=== PATIENT | female | born 1990 | race Two or more races ===

== ENCOUNTER 2016-07-04 00:25 | Emergency (ER) | payer SELFPAY ==
[2016-07-04] MEDS ORDERED: IOPAMIDOL 300 (61%) 150 ML VIAL IV ONE (00:26)
[2016-07-04] MEDS ORDERED: LACTATED RINGERS 1,000 ML ONE (02:20)
[2016-07-04] MEDS ORDERED: ONDANSETRON 4 MG/2ML 2 ML VIAL ONE ×2 (02:20→04:33)
[2016-07-04] MEDS ORDERED: HYDROMORPHONE HCL 0.5 MG/0.5 ML SYRINGE ONE (02:21)
[2016-07-04 02:30] LABS: ABSOLUTE NEUTROPHIL COUNT 10.4 K/mm3 (1.8-7.7); BASO % 0.3 % (0.2-1.0); EOS # 0.1 (0.0-0.5); EOS % 0.4 % (0.9-2.9); HEMATOCRIT 39.8 % (37.0-47.0); HEMOGLOBIN 12.7 gm/l (12.0-16.0); IMM NEUT # 0.1 K/mm3 (0-0.2); IMM NEUT% 0.5 % (0-1); LYMPH # 1.8 (1.0-4.8); LYMPH % 13.5 % (15-45); MEAN CORPUSCULAR HEMOGLOBIN 27.1 pg (27.0-31.0); MEAN CORPUSCULAR HGB CONC 31.9 g/dl (33.0-37.0); MEAN PLATELET VOLUME 10.7 fl (7.4-10.4); MONO # 1.2 (0.0-0.8); NEUT % 76.3 % (43-75); PLATELET COUNT 357 K/mm3 (130-400); RED CELL DISTRIBUTION WIDTH 13.5 % (11.5-14.5); SPECIFIC GRAVITY 1.005 (1.001-1.030); URINE BILIRUBIN NEGATIVE (NEGATIVE); URINE BLOOD TRACE (NEGATIVE); URINE GLUCOSE (UA) NEGATIVE (NEGATIVE); URINE LEUKOCYTE ESTERASE TRACE (NEGATIVE); URINE NITRITE NEGATIVE (NEGATIVE); URINE PROTEIN 2+ (NEGATIVE); URINE UROBILINOGEN NORMAL (0-1 mg/dl)
[2016-07-04 02:31] LABS: HCG,QUALITATIVE URINE NEGATIVE
[2016-07-04 02:32] LABS: URINE APPEARANCE SL CLOUDY; URINE COLOR YELLOW
[2016-07-04 02:36] LABS: URINE BACTERIA 1+
[2016-07-04 02:51] LABS: ALB/GLOB RATIO 0.9 (>1.0); CALCIUM 9.8 mg/dL (8.6-10.3)
[2016-07-04] MEDS ORDERED: KETOROLAC TROMETHAMINE 15 MG/ML VIAL ONE (04:33)
--- NOTE | 2016-07-04 08:55 | CT ---
Exam Type: ABD/PELVIS W/ CON Date and Time: 07/04/2016 3:00 AM Clinical information: Abdomen pain with vomiting. Comparison: None Procedure: Imaging device: [employer] Aquilion [address] scanner 1 mm axial images were obtained through the abdomen and pelvis. Stacked reconstructed 3, 4 and 5 mm images were photographed in the axial coronal and sagittal planes. No oral contrast was utilized for this examination. 125 ml of Isovue-300 was injected intravenously. Exam: with intravenous contrast. FINDINGS: Lung bases:The visualized lung bases appear to be appropriate with no mass, effusion or consolidation visualized. Liver: The liver appears to be of diffusely decreased attenuation when compared to the spleen. No focal mass or evidence of intrahepatic biliary dilatation is observed. Spleen: The spleen is homogeneous and does not appear to be enlarged. Gallbladder: Surgically absent. Pancreas: Normal without enlargement or evidence of adjacent inflammatory changes. Adrenal glands: Normal without enlargement or evidence of adjacent inflammatory changes. Abdominal aorta: The aorta is of normal caliber and appears to be without significant atherosclerotic disease. Kidneys: The renal enhancement pattern is symmetric. There is cortical enhancement only identified which may be due to early phase of contrast injection. Bilateral pyelonephritis is a less likely consideration though clinical correlation is recommended. No evidence of hydronephrosis is visualized. Bowel structures: The visualized bowel is of normal caliber without evidence of dilatation or obstruction. No free fluid or mesenteric inflammatory changes are identified. Appendix: The appendix is well-visualized and appears to be of normal caliber. No periappendiceal inflammatory changes or CT findings of appendicitis are currently observed. Bladder: The bladder is of normal contour. No wall thickening or significant distention is observed. Hernia: A small umbilical hernia is visualized. Adenopathy: No significant enlarged adenopathy is visualized. Osseous structures: No discrete osseous abnormalities are identified. Pelvic structures: The uterine contour is mildly irregular though no discrete uterine masses are observed. There is the suggestion of an arcuate uterus. A low-attenuation focus is seen within the region of the left adnexa measuring approximate 1.7 cm in size. Minimal pelvic free fluid may be present. IMPRESSION: 1. A bilateral renal enhancement pattern which may reflect early phase of contrast injection. The possibility of bilateral pyelonephritis is raised as a less likely consideration. Laboratory correlation is recommended. No current findings of hydronephrosis are visualized. 2. A 1.7 cm suspected left adnexal dominant follicle. There may be a minimal amount of pelvic free fluid. 3. A normal appearance of the appendix without CT evidence of appendicitis. 4. Findings most commonly associated with diffuse fatty infiltration of the liver. The findings were called to the emergency room at 0413 hours, 07/04/2016, by [facility].
== END 2016-07-04 05:27 | disposition home or self-care (01) ==
LOC: ED 00:25
DX: N83.202 Unspecified ovarian cyst, left side (principal); R10.84 Generalized abdominal pain; R11.2 Nausea with vomiting, unspecified; R94.4 Abnormal results of kidney function studies
CPT/HCPCS: 83690; 81025; 85025; 80053; 81001; 74177; 96375; 96376; 99284 ×2; 96374; 96361; J1885; J2405 ×2; J7120; Q9967; J1170